=== PATIENT | female | born 2000 | race Caucasian/White ===

== ENCOUNTER 2018-10-10 09:26 | Emergency (ER) | payer OTHER ==
[2018-10-10] MEDS ORDERED: NS 1,000 ML IV ONE (09:56)
[2018-10-10] MEDS ORDERED: ONDANSETRON 4 MG/2 ML VIAL ONE (10:01)
[2018-10-10] MEDS ORDERED: ONDANSETRON 4 MG/2 ML VIAL IVP ONE (10:01)
[2018-10-10 10:20] LABS: PLATELET COUNT 227 10^3/uL (150-400)
--- NOTE | 2018-10-10 10:27 | EDPHY ---
HPI/HX/ROS/PE/MDM Narrative: CHIEF COMPLAINT: Syncope, right ankle pain HISTORY OF PRESENT ILLNESS: The patient is a healthy 18 y/o female complaining of syncope and right ankle pain. She was drinking heavily last night and was running through the yard when she stepped off the curb and and rolled her ankle. The morning, she awoke feeling hungover. She went to the bathroom to vomit when her friend reports that she fell to the floor and had small jerky movements of her arms. The episode lasted approximately 30 seconds, at which time the patient regained consciousness. The patient was oriented to person and place upon waking. She was able to recognize her friends and told them she "fell asleep". She reports feeling weak, globally tingling, and sweaty for a few minutes afterward. She reports associated headache and nausea. She denies any tingling or numbness in extremities or any other associated symptoms. She denies hitting her head last night. She reports drinking vodka, using a nicotine vape pen, and using marijuana. She denies any drug use. She denies personal or family history of seizures, recent illness, or recent sleep interruptions or depravation. She is currently on her menses and uses oral contraceptives. No fever, chills, chest pain, shortness of breath, palpitations, diarrhea, urinary complaints, lightheadedness. REVIEW OF SYSTEMS: A comprehensive 10 system review of systems is otherwise negative aside from elements mentioned in the history of present illness and medical decision making PAST MEDICAL HISTORY: Denies SOCIAL HISTORY: Friend at bedside, employed, smoker VITAL SIGNS: Reviewed by me GENERAL: Well-developed, well-nourished, resting comfortably in no respiratory distress. HEENT: Atraumatic. Eyes: No icterus, no injection. Mouth: moist mucous membranes. No erythema or lesions. Neck: supple with no adenopathy. LUNGS: Clear to auscultation bilaterally, no wheezes, rhonchi or rales. CARDIAC: Regular rate and rhythm, no rubs, murmurs or gallops. ABDOMEN: Soft, nontender, nondistended, bowel sounds normal. BACK: No CVA tenderness. EXTREMITIES: Swelling and tenderness to the right ankle, worse on the lateral malleolus. Abrasions the the knees bilaterally. No edema. Range of motion is normal throughout other joints. NEURO: Alert and oriented. Strength and sensation equal bilaterally. No nystagmus. Grossly nonfocal. SKIN: Warm and dry, no rash. PSYCHIATRIC: Normal mentation, no agitation. ED Course: Study: X-ray of the right ankle Indication: Pain, injury, swelling Results: X-ray of the right ankle was obtained. The results of the study are: Negative for acute findings Radiology report pending. I viewed the images myself on the PACS system. The patient is a 18 y/o female complaining of right ankle pain and an episode of unconsciousness with jerking arm movements after a night of heavy drinking. Last night, she rolled her ankle on the curb. This morning, she felt hungover upon waking and went to the bathroom to vomit. Her friend reports that she lost consciousness and was on the ground with small jerking movements of the arms. The episode lasted about 30 seconds. Upon regaining consciousness, she was oriented and reports global tingling and sweating. She reports current headache and nausea. She denies head injury. Plan for CBC, basic metabolic panel, lipase , beta-Hcg, troponin, ethanol level, ankle X-ray, and EKG. 11:15 AM - Work up has been negative for acute findings. I feel she is safe for discharge with ortho follow up for her ankle. She agrees to this course of action. Follow up instructions and return precautions given. MDM: Differential diagnosis of the patient's presenting complaint was considered including but not limited to syncope versus seizure. I feel it is much more likely a syncopal event in the setting of dehydration, alcohol intoxication, and vomiting. Other considerations were made for arrhythmia as, dehydration, blood loss, electrolyte abnormality, . - Data Points Imaging: I viewed and interpreted images myself Laboratory Results: Laboratory Results 10/10/18 10:10 10/10/18 10:10 Medications Given: Discontinued Medications Sodium Chloride (Ns) 1,000 mls @ 0 mls/hr IV EDNOW ONE; Wide Open PRN Reason: Protocol Stop: 10/10/18 09:57 Last Admin: 10/10/18 10:05 Dose: 1,000 mls Ondansetron HCl (Zofran) 4 mg IVP EDNOW ONE Stop: 10/10/18 10:02 Last Admin: 10/10/18 10:06 Dose: 4 mg Point of Care Test Results: Chemistry 10/10/18 10:11 POC Troponin I 0.00 ng/mL ng/mL (0.00-0.08) General Time Seen by Provider: 10/10/18 09:43 Initial Vital Signs: Initial Vital Signs Temperature (C) 36.7 C 10/10/18 09:29 Heart Rate 89 10/10/18 09:29 Respiratory Rate 18 10/10/18 09:29 Blood Pressure 95/62 L 10/10/18 09:29 O2 Sat (%) 97 10/10/18 09:29 O2 Delivery Mode Room Air Allergies/Adverse Reactions: amoxicillin Allergy (Verified 10/10/18 09:28) Penicillins Allergy (Verified 10/10/18 09:28) Home Medications: Medication Instructions Recorded Ondansetron Odt [Zofran Odt 4 mg 4 mg PO Q6 PRN #8 tab 10/10/18 (RX)] Ortho-Cyclen 28 Tablet 10/10/18 Departure - Departure Disposition: Home, Routine, Self-Care Clinical Impression: Syncope, Vomiting, Ankle sprain Condition: Good Instructions: Ankle Sprain (ED), Syncope (ED), Acute Nausea and Vomiting (ED) Additional Instructions: For your vomiting, I suggested you start with a bland diet and advance as tolerated. This means start with clear liquids such as water, Gatorade, juice, flat non- caffeinated soda. If you tolerate clear liquids, then you may add bland foods such as bananas, rice, or toast. If you do not have any worsening of your symptoms, you may begin to resume a regular diet. Do not drink alcohol in excessive quantities. Okay to use Zofran if needed for recurrent nausea. You may ambulate as tolerated on your ankle. Ice and ibuprofen on the mainstays of therapy for the ankle injury. You been given referral to orthopedic surgeon. You may follow up if needed for concerns regarding persistent ankle pain or instability. Referrals: NONE *PRIMARY CARE P,. [Primary Care Provider] - As per Instructions Everett Angel MD [Medical Doctor] - As per Instructions Prescriptions: Ondansetron Odt [Zofran Odt 4 mg (RX)] 4 mg PO Q6 PRN #8 tab PRN Reason: Nausea Report Scribed for: Jade Vázquez Report Scribed by: Purnima Robyn Date of Report: 10/10/18 Time of Report: 10:30 Physician Review and Approval Statement: Portions of this note were transcribed by a medical oncology physician. I personally performed a history, physical exam, medical decision making, and confirmed accuracy of information the transcribed note.
[2018-10-10 11:37] VITALS: BP 98/65
--- NOTE | 2018-10-12 17:32 | CPEKG ---
Test Reason : OPEN Blood Pressure : / mmHG Vent. Rate : 074 BPM Atrial Rate : 074 BPM P-R Int : 150 ms QRS Dur : 077 ms QT Int : 393 ms P-R-T Axes : 038 028 038 degrees QTc Int : 436 ms Sinus rhythm Confirmed by Jade Vázquez ([id number]) on 10/12/2018 5:31:33 PM Referred By: Jade Vázquez Confirmed By:Jade Vázquez
== END 2018-10-10 11:37 | disposition home or self-care (01) ==
DX: R55 Syncope and collapse (principal); R11.2 Nausea with vomiting, unspecified; S93.401A Sprain of unspecified ligament of right ankle, initial encounter; E86.9 Volume depletion, unspecified; F10.920 Alcohol use, unspecified with intoxication, uncomplicated; W10.1XXA Fall (on)(from) sidewalk curb, initial encounter; Y93.02 Activity, running; Y92.480 Sidewalk as the place of occurrence of the external cause
CPT/HCPCS: 84484-ER; 96374; G0480; J2405; L4386